=== PATIENT | female | born 2005 ===

== ENCOUNTER 2024-08-19 13:21 | Outpatient (CLI) ==
[~2024-08-19] VITALS: Ht 162.6 cm; Wt 90.0 kg
[2024-08-19 13:39] VITALS: BP 117/75
[2024-08-19] MEDS: FLUCONAZOLE 100 MG TAB PO ONE (14:34)
[2024-08-19] MEDS ORDERED: FLUC10TA PO (14:54)
== END 2024-08-19 14:40 | disposition home or self-care (01) ==
LOC: M LDO 13:21
PROVIDERS: ATTEND Specialist
DX: O26.852 Spotting complicating pregnancy, second trimester (principal); O23.592 Infection of other part of genital tract in pregnancy, second trimester; Z3A.27 27 weeks gestation of pregnancy
CPT/HCPCS: 59025; G0463